=== PATIENT | female | born 1950 | race Hispanic/Latino ===

== ENCOUNTER 2019-04-04 10:14 | Day surgery (SDC) | payer OTHER ==
--- NOTE | 2019-04-04 12:09 | Anesthesia Consultation ---
Anesthesia Consult and Med Hx Date of service: 04/04/19 - Airway Anesthetic Teeth Evaluation: Good ROM Head & Neck: Adequate Mental/Hyoid Distance: Adequate Mallampati Class: Class II Intubation Access Assessment: Good - Pulmonary Exam CTA: Yes - Cardiac Exam Cardiac Exam: RRR - Pre-Operative Health Status ASA Pre-Surgery Classification: ASA2 Proposed Anesthetic Plan: MAC - Endocrine Hx Hypothyroidism: Yes
--- NOTE | 2019-04-04 12:10 | Anesthesia Day of Surgery ---
Anesthesia Day of Surgery - Day of Surgery Patient Examined: Yes Patient H&P Reviewed: Yes Patient is NPO: Yes
[2019-04-04] MEDS ORDERED: NACL 0.9% 1000 ML 1,000 ML IV SCH (13:00)
[2019-04-04] MEDS ORDERED: DIPRIVAN 10 MG/ML IV ONE ×2 (14:16→14:17)
[2019-04-04] MEDS ORDERED: SUBLIMAZE ONE (14:19)
[2019-04-04] MEDS ORDERED: XYLOCAINE MPF 2% ONE (15:00)
--- NOTE | 2019-04-04 15:04 | Operative Report ---
Operative Report Operative Report: Operative Report: Date of procedure: 04/04/2019 Procedure: Esophagogastroduodenoscopy Attending physician: Jeffrey Eden MD Enterprise Sales Person: Jeffrey Eden MD Indication: Patient is a 69-year-old female who presented with a history of abnormal weight gain. 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 She unexpectedly gained significant amount of weight lately. An upper endoscopy is done to assess patient so that treatment may be directed based on the findings. Consent: Informed consent was obtained after advising the patient and family regarding nature of this procedure, its indications, potential benefits as well as possible complications including but not limited to bleeding perforation and adverse reaction to medication, infection as well as other cardiopulmonary complications. An informed written and verbal consent was then obtained after d ue opportunity was provided for questions and answers. Monitoring: Patient was monitored continuously with pulse oximetry and electrocardiographic recordings as well as blood pressure recordings. Vital signs remained stable throughout this procedure with no untoward events. Preoperative assessment: Patient was assessed immediately prior to this procedure for capacity to tolerate monitored anesthesia care and moderate sedation as well as general anesthesia. Patient's ASA classification is 2, Mallampati class is 2, Hyomental distance is 3. Instrument: Iptivian video endoscope Medications: Propofol given intravenously in divided doses. For details please refer to anesthesia records. Description of procedure: Patient was placed in the left lateral decubitus position after achieving sedation, the endoscope was introduced into the esophagus under direct vision. It was then advanced beyond the esophagus into the gastric stump. There appeared to be a distal narrowing in the gastric stump opening into a large pouch again which appeared to be a continuing part of the stomach. A gastrojejunostomy anastomosis was then seen. One end of the gastrojejunostomy was a blind loop which was closed. The other part appear to continue into the distal jejunum and extended beyond this to the other parts of the intestine. This examined loop of jejunum appeared normal. There was no perianastomotic ulceration seen. Upon withdrawing the endoscope with further inspection of the gastric portion, the stomach appeared relatively large. This did not appear consistent with the usual findings in someone who has had a gastric bypass as the gastric stump appeared larger than usual. The gastroesophageal junction appeared normal. The endoscope was withdrawn after the examination. The following findings were noted. Findings: Esophagus was relatively normal . The gastric stump appeared larger than usual with the proximal aspect of the gastric stump narrowing and opening into a distal larger part of the gastric stump. The gastrojejunostomy anastomosis appeared normal. The examined limb of the jejunum appeared normal. There was a loop of jejunum which was closed. 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
[2019-04-04] MEDS ORDERED: APRESOLINE IV ONE (15:23)
[2019-04-04] MEDS ORDERED: APRESOLINE ONE (15:24)
[2019-04-04 15:32] VITALS: BP 167/94
--- NOTE | 2019-04-04 16:38 | Discharge Summary ---
Short Stay Discharge Plan Activity: advance as tolerated Weight Bearing Status: Weight Bear as Tolerated Diet: regular Additional Instructions: Post Sedation D/C Instructions When you return home you may resume your regular diet unless otherwise directed -Go directly home from the hospital and rest quietly. You may resume normal activities tomorrow. -Do NOT drive, return to work, operate any machinery or make any important personal or business decisions today. -Do NOT drink any alcohol or take nerve or sleeping drugs. They add to the effects of the medicine still present in your body. Follow up with: [facility] [Primary Care Provider] - 7 Days
== END 2019-04-04 10:15 | disposition home or self-care (01) ==
LOC: GIO 10:14
PROVIDERS: ATTEND Internal Medicine Gastroenterology
DX: R13.10 Dysphagia, unspecified (principal); E66.01 Morbid (severe) obesity due to excess calories; E03.9 Hypothyroidism, unspecified; Z98.84 Bariatric surgery status; Z79.899 Other long term (current) drug therapy; Z88.8 Allergy status to other drugs, medicaments and biological substances; Z87.891 Personal history of nicotine dependence; Z96.653 Presence of artificial knee joint, bilateral; Z98.890 Other specified postprocedural states; Z68.41 Body mass index [BMI] 40.0-44.9, adult
CPT/HCPCS: 43235; J0360; J2704; J3010; J7030

== ENCOUNTER 2019-04-25 12:10 | Day surgery (SDC) | payer OTHER ==
[~2019-04-25 12:10] MED LIST: NACL 0.9% 1000 ML 1,000 ML IV SCH
--- NOTE | 2019-04-25 13:05 | Anesthesia Day of Surgery ---
Anesthesia Day of Surgery - Day of Surgery Patient Examined: Yes Patient H&P Reviewed: Yes Patient is NPO: Yes
--- NOTE | 2019-04-25 13:06 | Anesthesia Consultation ---
Anesthesia Consult and Med Hx Date of service: 04/25/19 - Airway Anesthetic Teeth Evaluation: Good, Crowns ROM Head & Neck: Adequate Mental/Hyoid Distance: Adequate Mallampati Class: Class III Intubation Access Assessment: Probably Good - Pre-Operative Health Status ASA Pre-Surgery Classification: ASA2 Proposed Anesthetic Plan: MAC - Pulmonary Hx Sleep Apnea: No - Central Nervous System Hx Back Pain: Yes - Gastrointestinal Hx Gastroesophageal Reflux Disease: Yes - Endocrine Hx Hypothyroidism: Yes - Other Systems Hx Obesity: Yes
[2019-04-25] MEDS ORDERED: DIPRIVAN 10 MG/ML IV ONE ×3 (13:40→14:35)
[2019-04-25] MEDS ORDERED: XYLOCAINE MPF 2% ONE (14:00)
--- NOTE | 2019-04-25 14:31 | Operative Report ---
Operative Report Operative Report: Date of procedure: 04/25/2019 Procedure: Colonoscopy with submucosal injection and snare polypectomy and Hemoclip application.. Attending physician: Jeffrey Eden MD Air Plant Engineer: Jeffrey Eden MD Indication: Patient is a 69-year-old female who presents for screening colonoscopy. A colonoscopy serves to evaluate patient so that treatment may be directed based on the findings. Patient also has a history of fecal seepage/incontinence. Consent: Informed consent was obtained after advising the patient and family regarding nature of this procedure, its indications, potential benefits as well as possible complications including but not limited to bleeding perforation and adverse reaction to medication, infection as well as other cardiopulmonary complications. An informed written and verbal consent was then obtained after due opportunity was provided for questions and answers. Monitoring: Patient was monitored continuously with pulse oximetry and electrocardiographic recordings as well as blood pressure recordings. Vital signs remained stable throughout this procedure with no untoward events. Preoperative assessment: Patient was assessed immediately prior to this procedure for capacity to tolerate monitored anesthesia care and moderate sedation as well as general anesthesia. Patient's ASA classification is 2, Mallampati class is 2, Hyomental distance is 3. Instrument: Olympus video colonoscope Medications: Propofol given intravenously in divided doses. For details please refer to anesthesia records. Description of procedure: Patient was placed in the left lateral decubitus position after achieving sedation, a digital rectal examination was performed following which the colonoscope was introduced into the anal verge and advanced to the cecum which was identified by the cecal valve, the appendiceal orifice, as well as by the cecal strap and direct transillumination. The colonoscope was subsequently withdrawn with careful inspection of all mucosal surfaces. Patient tolerated this procedure well and was subsequently taken to the recovery room. The following findings were noted. Findings: The preparation was adequate. Patient had diffuse melanosis coli involving all segments of the colon. There were scattered diverticula seen in the sigmoid and descending colon as well as in the ascending colon. In the transverse colon, patient had an 8 mm flat polyp which was elevated with submucosal injection of saline and removed by snare polypectomy. The defect at the polypectomy site was closed with Hemoclip. On the retroflexed view at the anal verge, patient had internal hemorrhoids. Impression: Transverse colon polyp status post submucosal injection, snare polypectomy and Hemoclip application. Defused melanosis coli involving all segments of the colon. Diverticular disease of the colon. Internal hemorrhoids. Plan: Follow pathology report. High-fiber diet. Repeat colonoscopy in 5 years, if the polyp is adenomatous. Loperamide when necessary when patient is symptomatic with fecal incontinence/diarrhea..
--- NOTE | 2019-04-25 14:32 | Discharge Summary ---
Short Stay Discharge Plan Activity: advance as tolerated Weight Bearing Status: Weight Bear as Tolerated Diet: regular Follow up with: [facility] [Primary Care Provider] - 7 Days
[2019-04-25 14:47] VITALS: BP 110/57
--- NOTE | 2019-04-25 15:10 | Post Anesthesia Evaluation ---
- Post Anesthesia Evaluation Patient Participated: Yes Airway Patent: Yes Stable Respiratory Function: Yes Nausea/Vomiting: No Temp > 96.8F: Yes Pain Manageable: Yes Adequeate Hydration: Yes Anesthesia Complications: No Block Receding Appropriately: Not Applicable Patient on Ventilator: No
== END 2019-04-25 12:11 | disposition home or self-care (01) ==
LOC: GIO 12:10
PROVIDERS: ATTEND Internal Medicine Gastroenterology
DX: Z12.11 Encounter for screening for malignant neoplasm of colon (principal); D12.3 Benign neoplasm of transverse colon; K64.8 Other hemorrhoids; K57.30 Diverticulosis of large intestine without perforation or abscess without bleeding; K63.89 Other specified diseases of intestine; K21.9 Gastro-esophageal reflux disease without esophagitis; E03.9 Hypothyroidism, unspecified; Z79.899 Other long term (current) drug therapy; E66.01 Morbid (severe) obesity due to excess calories; Z87.891 Personal history of nicotine dependence; Z68.41 Body mass index [BMI] 40.0-44.9, adult; Z96.653 Presence of artificial knee joint, bilateral; Z98.890 Other specified postprocedural states; Z88.8 Allergy status to other drugs, medicaments and biological substances
CPT/HCPCS: 45381; 45385; 88305; J2704; J7030